=== PATIENT | female | born 1965 | race Caucasian/White ===

== ENCOUNTER 2016-12-28 23:35 | Emergency (ER) | payer OTHER ==
[~2016-12-28] VITALS: Ht 162.6 cm; Wt 97.7 kg
[~2016-12-28 23:35] MED LIST: BIOTIN PLUS-CA1 EACH PO; HAIR, SKIN & N1 EAC1 PO
[2016-12-29] MEDS ORDERED: FUTURO RESTORI1 EACH MC (00:14)
[2016-12-29] MEDS ORDERED: ULTRACET1 TABLET PO (00:14)
[2016-12-29] MEDS ORDERED: NORCO 5/3251 TABLET PO (00:14)
[2016-12-29 00:45] VITALS: BP 190/80
== END 2016-12-29 00:46 | disposition home or self-care (01) ==
LOC: EME 23:35
DX: M17.11 Unilateral primary osteoarthritis, right knee (principal); I83.93 Asymptomatic varicose veins of bilateral lower extremities
CPT/HCPCS: 99281; 99283